=== PATIENT | male | born 2000 | race Caucasian/White ===

== ENCOUNTER 2019-12-04 13:20 | Emergency (ER) | payer SELFPAY ==
--- NOTE | ~2019-12-04 | CT_ITS ---
EXAMINATION: CT soft tissue neck w con DATE: 12/04/2019 15:16 INDICATION: Sore throat. TECHNIQUE: Computed tomography (CT) of the neck was performed with 75 mL Omnipaque-350 intravenous co ntrast. Automated exposure control and iterative reconstruction technique were employed. The dose-carin gth product was 640.62 mGy-cm. COMPARISON: None FINDINGS: There is enlargement of the adenoids and palatine tonsils. There is a 2.5 x 1.2 cm left per itonsillar abscess. There is mild bilateral high and mid internal jugular chain lymphadenopathy. The neck arteries are normal. There is mucosal thickening in the paranasal sinuses. The spine is unremark able. IMPRESSION: 1. Enlarged adenoids and palatine tonsils with 2.5 x 1.2 cm left peritonsillar abscess. 2. Mild bilateral cervical lymphadenopathy, likely reactive. Reviewed, dictated and finalized at location A.
[2019-12-04 13:28] VITALS: BP 169/109; PULSE 112; RESP 18; TEMP 36.8; O2SAT 96
--- NOTE | 2019-12-04 13:38 | ED.GENADULT ---
HPI - General Adult General Chief complaint: Dental/Oral <DENISHA Borges - Last Filed: 12/04/19 18:13> Stated complaint: st <DENISHA Borges - Last Filed: 12/04/19 18:13> Time Seen by Provider: 12/04/19 13:33 <DENISHA Borges - Last Filed: 12/04/19 18:13> Source: patient <Violette DENISHA Gaytan - Last Filed: 12/04/19 18:13> Mode of arrival: ambulatory <DENISHA Borges - Last Filed: 12/04/19 18:13> Limitations: no limitations <DENISHA Borges - Last Filed: 12/04/19 18:13> History of Present Illness HPI narrative: 19-year-old male patient presents to the emergency department with complaints of a sore throat for the past 2 to 3 days. Patient states he has been having trouble eating and swallowing as well as he feels like he has a lot of thick fluid that he is constantly spitting up. Denies any fevers that he is aware of. Denies any chest pain or shortness of breath. Denies any abdominal pain, nausea, vomiting or diarrhea. Patient states he has had strep before in the past. <DNEISHA Borges - Last Filed: 12/04/19 18:13> Related Data Allergies/adverse reactions: Allergies Allergy/AdvReac Type Severity Reaction Status Date / Time No Known Allergies Allergy Verified 12/04/19 13:31 <DENISHA Borges - Last Filed: 12/04/19 18:13> Review of Systems Review of Systems: Narrative: CONSTITUTIONAL: Denies fever, chills, or sweats. EYES: Denies visual changes, redness, or discharge. ENT: Denies rhinorrhea, congestion, positive sore throat, denies otalgia. CARDIOVASCULAR: Denies chest pain, palpitations, or edema. RESPIRATORY: Denies cough or dyspnea. GASTROINTESTINAL: Denies abdominal pain, nausea, vomiting, or diarrhea. GENITOURINARY: Denies dysuria or hematuria. SKIN: Denies rash or itching. MUSCULOSKELETAL: Denies back pain, joint pain, or myalgia. NEUROLOGIC: Denies headache, numbness, or weakness. PSYCHIATRIC: Denies anxiety or depression. <DENISHA Borges - Last Filed: 12/04/19 18:13> PMFSH Comments At the time of my signature I agree with nursing past medical history, surgical, social, and family history. There is no relevant family history pertinent to the presenting complaint. <DENISHA Borges - Last Filed: 12/04/19 18:13> Exam Narrative: Exam Narrative: GENERAL: Well-appearing, well-nourished, and in no acute distress. HEAD: Normocephalic, atraumatic. EYES: PERRLA and EOMI. ENT: Nares clear, no rhinorrhea or epistaxis. Mucous membranes moist. Bilateral TMs are clear no erythema or foreign bodies in the canal. Posterior pharynx shows significant swelling to the left tonsil about 3 or 4+ causing deviation of the uvula. Patient does have an obvious hot potato voice noted during exam. Patient is able to tolerate secretions well but does report thick secretions that he constantly is having to spit up the last couple of days. NECK: Supple. Left-sided cervical lymphadenopathy present on palpation. No stridor noted. CHEST: Clear to auscultation. No respiratory distress. HEART: Regular rate and rhythm. No murmur heard. Normal peripheral pulses. ABDOMEN: Soft, nontender, nondistended, normal active bowel sounds. EXTREMITIES: Normal range of motion. No edema. SKIN: Warm, dry, no rash. NEURO: No focal deficits. Alert and oriented x3. <DENISHA Borges - Last Filed: 12/04/19 18:13> Course Reevaluation(s) Reevaluation #1: Attempt of drainage of the tonsillar abscess was unsuccessful. Dr. Ragland was called and he agrees to come in for drainage of the tonsillar abscess. <DENISHA Borges - Last Filed: 12/04/19 18:13> Date: 12/04/19 <DENISHA Borges - Last Filed: 12/04/19 18:13> Time: 16:50 <DENISHA Borges - Last Filed: 12/04/19 18:13> Reevaluation #2: Dr. Ragland with ENT in patient's room now successfully draining abscess. <Violette Moctezuma, DENISHA - Last Filed: 12/04/19 18:13> Date: 11/05
[2019-12-04 14:36] LABS: Basophils Absolute Auto 0.1 K/mm3 (0.0-0.1); Basophils Percent Auto 0.5 % (0.2-1.2); Eosinophils Absolute Auto 0.1 K/mm3 (0-0.3); Eosinophils Percent Auto 0.4 % (0-4.4); Hematocrit 48.1 % (42.0-52.0); Hemoglobin 17.2 g/dL (14.0-18.0); Immature Granulocyte Absolute 0.09 K/mm3 (0.00-0.031); Immature Granulocyte Percent A 0.6 % (0-0.5); Lymphocytes Absolute Auto 2.24 K/mm3 (0.9-3.2); Lymphocytes Percent Auto 13.8 % (18.3-44.2); Mean Corpuscular HGB Conc 35.8 g/dl (32-36); Mean Corpuscular Hemoglobin 30.8 pg (26-34); Mean Platelet Volume 10.7 fl (7.4-10.4); Monocytes Absolute Auto 1.5 K/mm3 (0.1-0.6); Neutrophils Absolute Auto 12.3 K/mm3 (1.3-6.7); Neutrophils Percent Auto 75.7 % (45.5-73.1); Platelet Count Result 327 k/mm3 (150-375); Red Blood Count 5.59 M/mm3 (4.6-6.20); Red Cell Distribution Width 11.5 % (11.5-14.5); White Blood Count 16.2 K/mm3 (4.5-10.0)
[2019-12-04 15:11] LABS: Estimated CRCL calculation 125 ml/min; Estimated Glomerular Filt Rate > 60
[2019-12-04 15:14] LABS: Alanine Aminotransferase 64 U/L (4-50); Albumin Level 4.8 g/dL (3.5-5.1); Alkaline Phosphatase 67 U/L (38-126); Anion Gap 14.9 mmol/L (7-16); Aspartate Amino Transferase 31 U/L (17-59); Bilirubin,Total 1.2 mg/dL (0.2-1.3); Blood Urea Nitrogen 8 mg/dL (9-20); Calcium 9.9 mg/dL (8.4-10.2); Carbon Dioxide 26 mmol/L (22-30); Chloride 100 mmol/L (98-107); Estimated CRCL calculation 125 ml/min; Estimated Glomerular Filt Rate > 60; Glucose 111 mg/dL (75-110); Potassium 3.9 mmol/L (3.4-5.0); Sodium 137 mmol/L (137-145)
[2019-12-04] MEDS: KETOROLAC 30 MG/ML VIAL (*BKC) IV PUSH (15:19)
[2019-12-04] MEDS: CLINDAMYCIN 600 MG/NS 50 ML 600 MG/50 ML PIGGYBACK 100 MG IVPB (16:30)
--- NOTE | 2019-12-04 18:11 | WPDCN ---
Assessment and Plan Assessment and plan (1) Abscess of tonsil: Code(s): J36 - Peritonsillar abscess Status: Acute Assessment and Plan: 19y M with left peritonsillar abscess. Drained at the bedside in the ED tonight. Will discharge on augmentin, pain meds per ED. Follow up with me in office in 1 week, or as needed. Reviewed return parameters with patient and mother. HPI Data of Consult Date/Time: 12/04/19 18:11 Primary Care Provider: CIVIL ENGINEERING INTERN PHYSICIAN Consult Narrative Narrative: Eddi Perez is a 19 year old male with left peritonsillar abscess after fluctuating throat pain for 2 weeks. 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 ED staff attempted drainage without success before ENT consulted. Review of Systems Review of Systems: All systems reviewed & are unremarkable except as noted in HPI and below Meds Home Medications and Allergies Home Medications Medication Instructions Recorded Confirmed Type amoxicillin-pot clavulanate 1 tablet PO Q12H 14 Days #28 tablet 12/04/19 Rx [Augmentin] Allergies Allergy/AdvReac Type Severity Reaction Status Date / Time No Known Allergies Allergy Verified 12/04/19 13:31 Vital Signs Vital Signs - 24 hr 12/04/19 13:28 Temperature 36.8 C Pulse Rate 112 H Respiratory Rate 18 Blood Pressure 169/109 H Pulse Oximetry 96 Exam Narrative: Exam Narrative: Significant left tonsillar hypertorphy and erythema. Right tonsil also moderately hypertrophied. Uvula deviated to right with soft palate bulge on left. Trismus present. 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 Drained at bedside as noted in operative note. Const: General: no acute distress HENMT: Ears: TM's normal bilaterally Eyes: General: appearance normal, both eyes and all related structures Results Labs CBC & Chem 7: 12/04/19 14:27 12/04/19 15:10 Labs: Short CBC 12/04/19 Range/Units 14:27 WBC 16.2 H (4.5-10.0) K/mm3 Hgb 17.2 (14.0-18.0) g/dL Hct 48.1 (42.0-52.0) % Plt Count 327 (150-375) k/mm3 BMP 12/04/19 12/04/19 14:56 15:10 Sodium 137 Potassium 3.9 Chloride 100 Carbon Dioxide 26 BUN 8 L Creatinine 0.90 0.90 Glucose 111 H Calcium 9.9 Liver Function 12/04/19 Range/Units 14:56 Total Bilirubin 1.2 (0.2-1.3) mg/dL AST 31 (17-59) U/L ALT 64 H (4-50) U/L Alkaline Phosphatase 67 (38-126) U/L Albumin 4.8 (3.5-5.1) g/dL
--- NOTE | 2019-12-04 18:15 | P.OP_ITS ---
Procedure Note - Detailed Date of procedure: 12/04/19 Pre-op diagnosis: st left peritonsillar abscess Post-op diagnosis: same Procedure performed: Incision and drainage of left peritonsillar abscess Description of procedure: After consent was obtained, topical Acetacaine spray was applied to the soft palate and pharynx. 1% lidocaine with 1 100,000 epinephrine was then infiltrated into the soft palate and peritonsillar region. An 11 blade was used to make a 2 cm incision in the LEFT soft palate near the peritonsillar space. A curved Marlena clamp was then used to enter the abscess pocket and several spreads were made with a significant release of infected purulent peritonsillar abscess fluid. Several more spreads were made to release any loculations confirming complete drainage of the infection. Minimal bleeding was present and the patient tolerated this procedure without complication. They noted immediate improvement in symptoms after the procedure. 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
[2019-12-04 18:19] VITALS: BP 145/76; PULSE 78; RESP 18; O2SAT 99
== END 2019-12-04 18:20 | disposition home or self-care (01) ==
PROVIDERS: Emergency Provider Nurse Practitioner Family
DX: J36 Peritonsillar abscess (principal)
CPT/HCPCS: 36415; 42700; 70491; 80053; 85025; 87081; 87147; 87880; 96365; 96375; 99284; A9270; J1885; Q9967